=== PATIENT | female | born 1980 | race Two or more races ===

== ENCOUNTER 2024-11-06 20:06 | Emergency (ER) | payer MEDICAID, SELFPAY ==
[2024-11-06 20:07] VITALS: BMI 29.6
[2024-11-06 20:20] VITALS: BP 141/95; PULSE 91; RESP 18; TEMP 36.9; O2SAT 98
--- NOTE | 2024-11-06 22:19 | PD.EDRME ---
Rapid Medical Screening Exam RME Arrival date/time: 11/06/24 20:06 Chief Complaint: Dizziness Time Seen by Provider: 11/06/24 21:13 Vital signs: Vital Signs Temperature 98.5 F 11/06/24 20:20 Pulse Rate 91 11/06/24 20:20 Respiratory Rate 18 11/06/24 20:20 Blood Pressure 141/95 H 11/06/24 20:20 Pulse Oximetry (%) 98 11/06/24 20:20 Oxygen Delivery Method Room Air 11/06/24 20:20 Vital signs reviewed by provider: Yes RME Narrative: 44-year-old female no pertinent past medical history presents for evaluation of headache x 3 hours. She reports dizziness (room spinning) and nausea without emesis. She denies history of similar symptoms.
--- NOTE | 2024-11-06 22:21 | XR_ITS ---
Examination: CT brain head without contrast. 2-D sagittal coronal reconstructions Date and time of exam:November 06, 2024 1040 hrs. Indications: Dizziness and vomiting today CTDI: vol (mGy):48 DLP: (mGycm):935 Technique: Multiple CT axial sections of the brain have been obtained, 5 mm slice thickness. Contrast has not been administered. 2-D sagittal, coronal reconstructions have been obtained Low dose protocols were performed. One or more of the following dose reduction techniques were used; automated exposure control, adjustment of the mA and/or KV according to patient size, use of iterative reconstruction technique. Findings: No significant ventricular enlargement. Intra-axial or extra-axial hemorrhage density is not seen. No mass effect or midline shift Basal cisterns are not remarkable. Fourth ventricle is midline. Cranial vault intact. Impression: Negative for acute hemorrhage, mass effect or midline shift Advise clinical correlation and follow-up accordingly
[2024-11-06] MEDS: METOCLOPRAMIDE INJ 5 MG/ML VIAL 2 ML 10 MG IM (22:29)
[2024-11-06] MEDS: ACETAMINOPHEN 325 MG TABLET 650 MG PO (22:29)
[2024-11-06] MEDS: DiphenhydrAMINE INJ 50 MG/ML VIAL 25 MG IM (22:29)
[2024-11-07 01:58] VITALS: BP 120/79; PULSE 96; RESP 16; TEMP 36.8; O2SAT 96
--- NOTE | 2024-11-07 02:03 | EDNOTE_ITS ---
ED Dizzyness RME/HPI General Chief Complaint: Dizziness Stated Complaint: DIZZY, VOMITING Time Seen by Provider: 11/06/24 21:13 Source: patient Arrival date/time: 11/06/24 20:06 Limitations: no limitations RME / HPI RME / HPI Narrative: Dr. Moya?s Main ED Evaluation: 44-year-old [place]az[place]-speaking female with no significant past medical history pre sents for evaluation of a new-onset headache persisting for 3 hours. She describes room-spinning sensation and nausea without emesis. She denies any prior history of similar symptoms. No additional complaints at this time. Related Data Previous Rx's ?Medication ?Instructions ?Recorded meclizine 25 mg tablet 25 mg PO QID PRN dizziness # 20 tabs 11/07/24 ondansetron 4 mg disintegrating 4 mg PO Q6H PRN nausea and 11/07/24 tablet vomiting #14 tabs Allergies Allergy/AdvReac Type Severity Reaction Status Date / Time No Known Allergies Allergy Verified 11/06/24 20:07 Review of Systems Review of Systems Systems Reviewed: All systems reviewed, normal except as documented Past Medical History Past Medical History CARDIAC: Negative Congestive Heart Failure RESPIRATORY: Negative Chronic Obstructive Pulmonary Disease (COPD) GENITOURINARY: Negative Renal Disease ENDOCRINE: Negative Diabetes Mellitus Type 1 or Diabetes Mellitus Type 2 Social History SMOKING STATUS: Never smoker ED Exam Narrative Physical exam: Cerebellar exam: no intention tremor, staccato speech, dysmetria or dysdiadochokinesia General Limitations: Present no limitations General appearance: Present alert and in no apparent distress Head Head exam: Present atraumatic Eye Eye exam: Present normal appearance, PERRL and EOMI ENT ENT exam: Present normal exam, normal oropharynx and mucous membranes moist Neck Neck exam: Present normal inspection, full ROM and trachea midline Chest Chest inspection: Present normal inspection and symmetric chest wall rise Respiratory Respiratory exam: Present normal lung sounds bilaterally Cardiovascular Cardiovascular exam: Present regular rate, normal rhythm and normal heart sounds Abdominal Exam Abdominal exam: Present soft and normal bowel sounds Extremities Exam Extremities exam: Present normal inspection and full ROM Back Exam Back exam: Present normal inspection and full ROM Neurological Exam Neurological exam: Present alert, oriented X3 and CN II-XII intact Psychiatric Psychiatric exam: Present normal affect and normal mood Skin Skin exam: Present warm, dry, intact and normal color Course Quality Measures none Orders Category Date Time Status CT head/brain wo con Stat Exams 11/06/24 22:21 Completed Acetaminophen Tab [Tylenol Tab] Med 11/06/24 22:20 Discontinued 650 mg PO X1 ONE DiphenhydrAMINE INJ [Benadryl Inj] Med 11/06/24 22:20 Discontinued 25 mg IM X1 ONE Meclizine HCl [Antivert] Med 11/07/24 02:04 Discontinued 25 mg PO X1 ONE Metoclopramide Inj [Reglan Inj] Med 11/06/24 22:20 Discontinued 10 mg IM X1 ONE Vital Signs Vital signs: Vital Signs Temperature 98.5 F 11/06/24 20:20 Pulse Rate 91 11/06/24 20:20 Respiratory Rate 18 11/06/24 20:20 Blood Pressure 141/95 H 11/06/24 20:20 Pulse Oximetry (%) 98 11/06/24 20:20 Oxygen Delivery Method Room Air 11/06/24 20:20 Dizziness MDM Narrative MDM Narrative:: Scribe Attestation: Hunter Chong am scribing for and in the presence of Dr. Moya. Provider Notation: Although this document has been carefully reviewed, there may still be some phonetic and other typographical errors. These errors are purely grammatical due to imperfections in the software program and should not be construed in any way to compromise the substance of the patient's medical care during this visit. Patient data External records reviewed:: None Clinical information provided by:: patient Social determinants that could affect healthcare access:: none Patient has the following chronic illnesses:: na How is presenting disease/condition affected by chronic disease/condition?: no chronic disease Evaluation data The following diagnostics were reviewed and interpreted by me:: lab results and radiology exam(s) Lab and/or radiology exams considered but not ordered:: na Interpretation Summary: Examination: CT brain head without contrast. Date and time of exam:November 06, 2024 1040 hrs. Indications: Dizziness and vomiting today Findings: No significant ventricular enlargement. Intra-axial or extra-axial hemorrhage density is not seen. No mass effect or midline shift Basal cisterns are not remarkable. Fourth ventricle is midline. Cranial vault intact. Impression: Negative for acute hemorrhage, mass effect or midline shift Advise clinical correlation and follow-up accordingly Dictated By: Anjum Mauricio MD Medications / Prescriptions Medications or Prescriptions considered but not ordered:: na Medication administrations:: Medication Administration History Discontinued Medications Acetaminophen (Acetaminophen 325 Mg Tablet) 650 mg PO X1 ONE Stop: 11/06/24 22:21 Last Admin: 11/06/24 22:29 Dose: 650 mg Documented By: JOHAN Diphenhydramine HCl (Diphenhydramine Inj 50 Mg/Ml Vial) 25 mg IM X1 ONE Stop: 11/06/24 22:21 Last Admin: 11/06/24 22:29 Dose: 25 mg Documented By: JOHAN Meclizine HCl (Meclizine Hcl 25 Mg Tablet) 25 mg PO X1 ONE Stop: 11/07/24 02:05 Last Admin: 11/07/24 02:15 Dose: 25 mg Documented By: LUIS ALBERTO Metoclopramide HCl (Metoclopramide Inj 5 Mg/Ml Vial 2 Ml) 10 mg IM X1 ONE Stop: 11/06/24 22:21 Last Admin: 11/06/24 22:29 Dose: 10 mg Documented By: JOHAN as above Consultations Consultation(s) initiated? (list below): No Diagnosis Dizziness Differential Diagnosis: other (Dizziness, Vertigo, Headache, Migraine) Most likely diagnosis given after review of the tests above:: Headache, Vertigo Admission Indicated Admission indicated?: not indicated Admission Request Was there a request for admission?: No Disposition Plan Disposition Plan: Discharge Discharge Attestation Discharge Attestation: The patient and all family members were given an opportunity to ask questions and understood the discharge instructions. Discharge instructions specifically effects, indications for sooner follow up or return to the emergency department, and the expected course of current diagnosis. Patient condition: Stable Discharge Plan Plan Patient Disposition: HOME (Self Care) Disposition Comment: Stable for discharge home Patient condition on transfer: Stable Prescriptions/Referrals Prescriptions/Med Rec: New meclizine 25 mg tablet 25 mg PO QID PRN (Reason: dizziness) Qty: 20 0RF ondansetron 4 mg tablet,disintegrating 4 mg PO Q6H PRN (Reason: nausea and vomiting) Qty: 14 0RF Referrals: [facility] [place] [Outside] - In 1 week Problem List Clinical Impression: Headache, Vertigo Patient/Caregiver Discharge Instructions Discharge Activity: activity as tolerated Education Materials: Self-Care for Headaches, Vertigo Medicine Tx, Vertigo Staying Safe Additional Instructions: Please return to the emergency department if you have any worsening or if you are not improving within 48 hours and we will help you. Otherwise you should follow-up with your primary care doctor within the next several days Print Language: [place]az[place] Stand Alone Forms: Willa Award Info., Patient Portal Info Letter
[2024-11-07] MEDS: MECLIZINE HCL 25 MG TABLET PO (02:15)
== END 2024-11-07 02:17 | disposition home or self-care (01) ==
PROVIDERS: Emergency Provider Emergency Medicine; PCP Family Medicine
DX: R51.9 Headache, unspecified (principal); R42 Dizziness and giddiness
CPT/HCPCS: 70450; 96372; 99284; J1200; J2765; A9270